=== PATIENT | female | born 1970 ===

== ENCOUNTER 2018-02-26 19:43 | Emergency (ER) | payer SELFPAY ==
[2018-02-26 19:49] VITALS: BP 155/93; PULSE 81; RESP 16; TEMP 99.2; O2SAT 98
--- NOTE | 2018-02-26 20:22 | C.PDOC ---
History Of Present Illness 47 year old female presents to the ED complaining of new onset right face swelling since yesterday. Denies any fever, pain, tooth pain, or any other associated symptoms. NEW ONSET SWELLING R FACE SINCE YEST. NO FEVER, PAIN, TOOTH PAIN OTHER ASSOC SX. EXAM NAD NONTOXIC HEENT +R PAROTID AREA SWELLING NONTEND NO FLUCUTANCE; NO DENTALGIA, ABSCESS; SKIN NO ERYTHEMA, LESIONS; INTACT NECK SUPPLE NODES NO CERV, ANT NECK, OCCIPITAL NODES Time Seen by Provider: 02/26/18 19:59 Chief Complaint (Nursing): Abnormal Skin Integrity History Per: Patient History/Exam Limitations: no limitations Onset/Duration Of Symptoms: Days (1) Current Symptoms Are (Timing): Still Present Past Medical History Reviewed: Historical Data, Nursing Documentation, Vital Signs Vital Signs: Last Vital Signs Temp 99.2 F 02/26/18 19:46 Pulse 81 02/26/18 19:46 Resp 16 02/26/18 19:46 BP 155/93 H 02/26/18 19:46 Pulse Ox 98 02/26/18 19:46 - Medical History PMH: No Chronic Diseases Surgical History: Family History: States: No Known Family Hx - Social History Hx Alcohol Use: No Hx Substance Use: No Review Of Systems Except As Marked, All Systems Reviewed And Found Negative. Constitutional: Positive for: Other (right face swelling ). Negative for: Fever ENT: Negative for: Mouth Pain Physical Exam - Physical Exam Appears: Non-toxic, No Acute Distress Skin: Warm, Dry, No Rash, No Other (erythema, lesions ) Head: Swelling (+R PAROTID AREA SWELLING NONTEND NO FLUCUTANCE) Tongue: Normal Appearing Lips: Normal Appearing Teeth: Normal Dentition Gingiva: Normal Appearing, No Abscess, No Other (dentalgia ) Neck: Normal ROM, Supple Lymphatic: No Other (CERV, ANT NECK, OCCIPITAL NODES) Cardiovascular: Rhythm Regular Respiratory: Other (NARD) Neurological/Psych: Oriented x3, Normal Speech Gait: Steady ED Course And Treatment O2 Sat by Pulse Oximetry: 98 (RA) Pulse Ox Interpretation: Normal Disposition Counseled Patient/Family Regarding: Diagnosis, Need For Followup, Rx Given - Disposition Referrals: YOUR,PMD [Other] Disposition: HOME/ ROUTINE Disposition Time: 20:20 Condition: IMPROVED Prescriptions: Amoxicillin/Clavulanate [Augmentin 875 MG-125 MG] 1 tab PO BID #14 tab Instructions: Salivary Gland Infection (DC) Forms: [facility] (Thai) Print Language: URDU - Clinical Impression Clinical Impression: Acute parotitis - Scribe Statement The provider has reviewed the documentation as recorded by the Scribina Barry All medical record entries made by the Kulwinderibina were at my direction and personally dictated by me. I have reviewed the chart and agree that the record accurately reflects my personal performance of the history, physical exam, medical decision making, and the department course for this patient. I have also personally directed, reviewed, and agree with the discharge instructions and disposition.
== END 2018-02-26 20:33 | disposition home or self-care (01) ==
LOC: C.ER 19:43
DX: K11.20 Sialoadenitis, unspecified (principal)